=== PATIENT | male | born 1970 | race Caucasian/White ===

== ENCOUNTER 2017-04-10 06:44 | Emergency (ER) | payer OTHER ==
[~2017-04-10] VITALS: Ht 180.3 cm; Wt 113.6 kg
[2017-04-10 06:57] VITALS: BP 125/83
[2017-04-10] MEDS ORDERED: ROBA500T PO (07:06)
[2017-04-10] MEDS ORDERED: zanaflex PO (07:06)
[2017-04-10] MEDS ORDERED: OMEP40CA2 PO (07:06)
[2017-04-10] MEDS ORDERED: CELE1CAP4 PO (07:06)
[2017-04-10] MEDS ORDERED: RIZA10TA2 PO (07:06)
[2017-04-10] MEDS ORDERED: ASPI81TA21 PO (07:06)
[2017-04-10] MEDS ORDERED: SILD1TAB8 PO (07:06)
[2017-04-10] MEDS ORDERED: CHEW500C2 PO (07:06)
[2017-04-10] MEDS ORDERED: VITACAP8 PO (07:06)
[2017-04-10] MEDS ORDERED: LISI10TA4 PO (07:06)
[2017-04-10] MEDS ORDERED: TRAM50TA2 PO (07:06)
[2017-04-10] MEDS ORDERED: LIDO5DIS41 TD (07:06)
[2017-04-10] MEDS ORDERED: PRAV10TA4 PO (07:06)
[2017-04-10] MEDS ORDERED: ALL10TAB27 PO (07:06)
[2017-04-10] MEDS ORDERED: LOPR1TAB6 PO (07:06)
[2017-04-10] MEDS ORDERED: MULTLIQ7 PO (07:06)
[2017-04-10] MEDS ORDERED: TETRACAINE 0.5% OPHTH SOLN 4ML OS ONE (07:15)
[2017-04-10] MEDS ORDERED: FLUORESCEIN OPHTH 1 MG STRIP OS ONE (07:15)
[2017-04-10] MEDS ORDERED: NORCO, ANEXSIA 5/325MG TABLET (HYDROcodone/ACETAMINOPHEN) PO ONE (07:30)
[2017-04-10] MEDS ORDERED: ERYT5OPO OD (07:30)
[2017-04-10] MEDS ORDERED: NORCOTAB PO (07:30)
[2017-04-10] MEDS ORDERED: ERYTHROMYCIN OPHTH OINT OD ONE (07:30)
[2017-04-24] MEDS ORDERED: SILD50TA PO (08:29)
[2017-04-24] MEDS ORDERED: OMEP20CA3 PO (08:29)
[2017-04-24] MEDS ORDERED: MULT1TAB10 PO (08:29)
== END 2017-04-10 07:56 | disposition home or self-care (01) ==
LOC: M ED 06:46
DX: S05.01XA Injury of conjunctiva and corneal abrasion without foreign body, right eye, initial encounter (principal); X58.XXXA Exposure to other specified factors, initial encounter; Y92.096 Garden or yard of other non-institutional residence as the place of occurrence of the external cause; Y93.H9 Activity, other involving exterior property and land maintenance, building and construction; Y99.8 Other external cause status; I10 Essential (primary) hypertension; K21.9 Gastro-esophageal reflux disease without esophagitis; E78.70 Disorder of bile acid and cholesterol metabolism, unspecified; Z79.82 Long term (current) use of aspirin; Z79.899 Other long term (current) drug therapy; Z88.0 Allergy status to penicillin

== ENCOUNTER 2017-05-01 06:00 | Day surgery (SDC) | payer OTHER ==
[~2017-05-01] VITALS: Ht 180.3 cm; Wt 113.4 kg
[~2017-05-01 06:00] MED LIST: ALL10TAB27 PO; ASPI81TA21 PO; CELE1CAP4 PO; CHEW500C2 PO; ERYT5OPO OD; LIDO5DIS41 TD; LISI10TA4 PO; LOPR1TAB6 PO; MULT1TAB10 PO; MULTLIQ7 PO; NORCOTAB PO; OMEP20CA3 PO; OMEP40CA2 PO; PRAV10TA4 PO; RIZA10TA2 PO; ROBA500T PO; SILD1TAB8 PO; SILD50TA PO; TRAM50TA2 PO; VITACAP8 PO; zanaflex PO
[2017-05-01] MEDS ORDERED: metroNIDAZOLE 500 MG in APPROPRIATE DILUENT 1 EA IV ONE (06:15)
[2017-05-01] MEDS ORDERED: LR 1,000 ML IV SCH ×2 (06:15→09:15)
[2017-05-01] MEDS ORDERED: LIDOCAINE W/EPINEPHRINE 1% 20ML VIAL As Ordered ONE (06:48)
[2017-05-01] MEDS ORDERED: MIDAZOLAM INJ 2 MG/2 ML VIAL (J2250) As Ordered ONE (07:11)
[2017-05-01] MEDS ORDERED: fentaNYL 100 MCG/2 ML INJECTION (J3010) As Ordered ONE (07:11)
--- NOTE | 2017-05-01 07:58 | ROOPDOC ---
[facility] Report Of Operation Report of Operation DATE OF PROCEDURE: 05/01/17 PREPROCEDURE DIAGNOSES: nonhealing posterior anal fissure, bleeding internal hemorrhoids. POSTPROCEDURE DIAGNOSES: same PROCEDURE: Exam under anesthesia, Lateral Internal Sphincterotomy, Excisional Hemorrhoidectomy. SURGEON: Cadence Sanabria MD RESOURCE ENGINEER: ANESTHESIA: Spinal anesthesia, local anesthesia (lidocaine 1% with epinephrine, Exparel). ESTIMATED BLOOD LOSS: Approximately 20 mL. COMPLICATIONS: none. REMARKS: 46 m with chronic recurrent, intermittent pain and bleeding from a posterior midline fissure and internal hemorrhoids (Grade 2-3) who still bleeds despite hemorrhoidal banding several times in the office. PROCEDURE NOTE: posterior midline fissure - chronic, right lateral external and internal hemorrhoid removed, anterior engorged internal hemorrhoid removed. Exparel placed at the end. DESCRIPTION OF PROCEDURE: Patient brought to the room, spinal anesthesia induced and tested. He was then placed in a prone adeola-knife position. Nylon tapes used to retract his gluteus and expose the anal verge. He was placed on slight trendelenburg position. Patient was given sedation and monitored throughout the procedure. The perianal area was then prepped with Betadine and draped in the usual sterile fashion. On external examination of the anal verge, there is a single mildly enlarged external hemorrhoid over the right lateral position. A chronic shallow appearing fissure is noted at the posterior midline. A single valve anal speculum/retractor was placed in the anal canal was circumferentially examined. There is extension of the enlarged external hemorrhoid beyond the dentate line consistent with also moderately enlarged internal hemorrhoid at the same area. There were no mucosal thickening, irritation of this mildly enlarged hemorrhoid. There was some chronic appearing scar at the area most likely from her previous hemorrhoidal banding. Allis forceps was then used to grasp this bundle of hemorrhoidal tissue and skin and mucosa away from the sphincter muscles. The mucosa and skin was scored in an elliptical fashion. Starting at the external hemorrhoid we then the hemorrhoidal tissue from the sphincter muscles using Metzenbaum scissors and Bovie cautery down to the base of the internal hemorrhoid. A 3-0 chromic was then used to ligate the internal hemorrhoid and this was divided. As we have already exposed the sphincter muscles from our hemorrhoidal dissection I chose to do the internal sphincterotomy at this area. A hemostat was passed underneath the internal sphincter this was then divided with Bovie cautery. The 2 edges of the mucosa and then skin was then closed with a running suture of the same 3-0 chromic hemorrhoid. Over the left anterior is a small mildly enlarged internal hemorrhoid. This was again grasped with Allis forceps I used a 3-0 chromic to tie this off at its base trying to get the feeding vessel of the hemorrhoid. I then circumferentially scored the mucosa and remove the hemorrhoidal excess hemorrhoidal tissue. Unfortunately the previously placed chromic ligature broke off. Bleeding was then controlled by grabbing the tissue proximal to this and to 3-0 chromic ligatures was then placed beyond the area to control the bleeding. After irrigating, I reexamined this area likewise examined the anal canal and the previous area of hemorrhoidectomy for bleeding and when none was found the nylon tapes worse removed, vascularized gauze was placed at the anal verge, bulky gauze dressing and postop underwear used to keep the dressing intact. Patient was then awakened, transferred to the stretcher and brought to recovery room stable. BRENDAN SANABRIA MD May 01, 2017 07:58
[2017-05-01] MEDS ORDERED: BUPIVACAINE LIPOSOME/PF 1.3% 20 ML VIAL (13.3MG/ML)(EXPAREL) As Ordered ONE (08:08)
[2017-05-01] MEDS ORDERED: LIDOCAINE 2% INJ 100 MG/5 ML SDV (FOR ANES.) As Ordered ONE (08:20)
[2017-05-01] MEDS ORDERED: PROPOFOL 200 MG/20 ML VIAL As Ordered ONE (08:20)
[2017-05-01] MEDS ORDERED: METOCLOPRAMIDE INJ 10MG/2ML VIAL (J2765) As Ordered ONE (08:26)
[2017-05-01] MEDS ORDERED: MORPHINE 2 MG/ML 1ML SYRINGE IV PRN (09:15)
[2017-05-01] MEDS ORDERED: PERCOCET 5MG/325MG TAB PO PRN (09:15)
[2017-05-01] MEDS ORDERED: METOCLOPRAMIDE INJ 10MG/2ML VIAL (J2765) IV PRN (09:15)
[2017-05-01] MEDS ORDERED: ONDANSETRON 4MG/2ML VIAL (J2405) IV PRN (09:15)
[2017-05-01] MEDS ORDERED: fentaNYL 100 MCG/2 ML INJECTION (J3010) IV PRN (09:15)
[2017-05-01] MEDS ORDERED: NORCO, ANEXSIA 5/325MG TABLET (HYDROcodone/ACETAMINOPHEN) PO PRN (09:30)
[2017-05-01 14:45] VITALS: BP 111/69
== END 2017-05-01 14:55 | disposition home or self-care (01) ==
LOC: M SDC 06:00
PROVIDERS: ATTEND Surgery
DX: K60.1 Chronic anal fissure (principal); K64.1 Second degree hemorrhoids; K64.2 Third degree hemorrhoids; K64.5 Perianal venous thrombosis; I10 Essential (primary) hypertension; K21.9 Gastro-esophageal reflux disease without esophagitis; M12.9 Arthropathy, unspecified; M54.2 Cervicalgia; M51.9 Unspecified thoracic, thoracolumbar and lumbosacral intervertebral disc disorder; R29.898 Other symptoms and signs involving the musculoskeletal system; G43.809 Other migraine, not intractable, without status migrainosus; R06.83 Snoring; G47.30 Sleep apnea, unspecified; F41.9 Anxiety disorder, unspecified; F32.9 Major depressive disorder, single episode, unspecified; Z88.0 Allergy status to penicillin; Z79.899 Other long term (current) drug therapy; Z79.82 Long term (current) use of aspirin; Z87.81 Personal history of (healed) traumatic fracture; Z87.891 Personal history of nicotine dependence
CPT/HCPCS: 46200; 46255; 88304; J2250; J2765; J3010

== ENCOUNTER 2018-10-05 11:46 | Day surgery (SDC) | payer OTHER ==
[~2018-10-05] VITALS: Ht 185.4 cm; Wt 113.4 kg
[~2018-10-05 11:46] MED LIST changes: -ALL10TAB27 PO; +ALL10TAB28 PO; +NS 1,000 ML IV ONE
[2018-10-05] MEDS ORDERED: PROPOFOL 200 MG/20 ML VIAL As Ordered ONE ×2 (13:00→14:18)
[2018-10-05] MEDS ORDERED: LIDOCAINE 2% INJ 100 MG/5 ML SDV (FOR ANES.) As Ordered ONE ×2 (13:00→14:18)
--- NOTE | 2018-10-05 14:31 | ROOR ---
Patient Name: Max Kent Procedure Date: 10/05/2018 2:15 PM Date of : 1970 Age: 47 Room: [facility] Gender: Male Note Status: Finalized Procedure: Upper Endoscopy + Biopsies Indications: Heartburn, Exclusion of Verdugo's esophagus Providers: Gerson Miller MD Referring MD: [facility], Admin. Requesting Provider: Medicines: Monitored Anesthesia Care Complications: No immediate complications. Procedure: Pre-Anesthesia Assessment: - The heart rate, respiratory rate, oxygen saturations, blood pressure, adequacy of pulmonary ventilation, and response to care were monitored throughout the procedure. The Endoscope was introduced through the mouth, and advanced to the second part of duodenum. The upper GI endoscopy was accomplished without difficulty. The patient tolerated the procedure well. Findings: The Z-line was variable and was found 40 cm from the incisors. Multiple biopsies were obtained with cold forceps for evaluation to rule out Verdugo's Esophagus randomly at the gastroesophageal junction. A small hiatal hernia was present. No other significant abnormalities were identified in a careful examination of the stomach. The exam of the duodenum was otherwise normal. Impression: - Z-line variable, 40 cm from the incisors. - Small hiatal hernia. - Multiple biopsies were obtained at the gastroesophageal junction. - The examination was otherwise normal. Recommendation: - Patient has a contact number available for emergencies. The signs and symptoms of potential delayed complications were discussed with the patient. Return to normal activities tomorrow. Written discharge instructions were provided to the patient. - High fiber diet. - Discharge patient to home. - Follow an antireflux regimen. - Continue present medications. - Await pathology results. - Telephone GI clinic for pathology results in 1 week. - Check Portal Online for Path Results.([email or web address]) Gerson Miller MD Gerson Miller MD 10/05/2018 2:30:31 PM This report has been signed electronically. Number of Addenda: 0 Note Initiated On: 10/05/2018 2:15 PM Estimated Blood Loss: Estimated blood loss: none.
--- NOTE | 2018-10-05 14:42 | ROOR ---
Patient Name: Max Kent Procedure Date: 10/05/2018 2:16 PM Date of : 1970 Age: 47 Room: [facility] Gender: Male Note Status: Finalized Procedure: Total Colonoscopy to Cecum Indications: Colon cancer screening in patient at increased risk: Family history of 1st-degree relative with colon polyps Providers: Gerson Miller MD Referring MD: [facility], Admin. Requesting Provider: Medicines: Monitored Anesthesia Care Complications: No immediate complications. Procedure: Pre-Anesthesia Assessment: - The heart rate, respiratory rate, oxygen saturations, blood pressure, adequacy of pulmonary ventilation, and response to care were monitored throughout the procedure. The Colonoscope was introduced through the anus and advanced to the cecum, identified by appendiceal orifice and ileocecal valve. The colonoscopy was performed without difficulty. The patient tolerated the procedure well. The quality of the bowel preparation was excellent. Findings: The perianal and digital rectal examinations were normal. Non-bleeding internal hemorrhoids were found during retroflexion. The hemorrhoids were small and Grade I (internal hemorrhoids that do not prolapse). No other significant abnormalities were identified in a careful examination of the remainder of the colon. The exam was otherwise without abnormality on direct and retroflexion views. Impression: - Non-bleeding internal hemorrhoids. - The examination was otherwise normal on direct and retroflexion views. - No specimens collected. - The exam was otherwise normal to the cecum. Recommendation: - Patient has a contact number available for emergencies. The signs and symptoms of potential delayed complications were discussed with the patient. Return to normal activities tomorrow. Written discharge instructions were provided to the patient. - High fiber diet. - Discharge patient to home. - Continue present medications. - Repeat colonoscopy in 5 years for screening purposes. - Return to referring physician. - The findings and recommendations were discussed with the patient's family. Gerson Miller MD Gersno Miller MD 10/05/2018 2:41:46 PM This report has been signed electronically. Number of Addenda: 0 Note Initiated On: 10/05/2018 2:16 PM Estimated Blood Loss: Estimated blood loss: none.
[2018-10-05 15:00] VITALS: BP 139/89
== END 2018-10-05 15:08 | disposition home or self-care (01) ==
LOC: M OPP 11:46
PROVIDERS: ATTEND Internal Medicine Gastroenterology
DX: Z12.11 Encounter for screening for malignant neoplasm of colon (principal); Z83.71 Family history of colonic polyps; K64.0 First degree hemorrhoids; K22.8 Other specified diseases of esophagus; K44.9 Diaphragmatic hernia without obstruction or gangrene; R12 Heartburn; Z79.82 Long term (current) use of aspirin; Z79.891 Long term (current) use of opiate analgesic; Z79.899 Other long term (current) drug therapy; Z88.0 Allergy status to penicillin; Z87.891 Personal history of nicotine dependence
CPT/HCPCS: 43239; 88305; G0105